=== PATIENT | female | born 1950 | race Caucasian/White ===

== ENCOUNTER → 2018-08-07 12:17 | Outpatient (CLI) | payer MEDICARE, OTHER, SELFPAY ==
--- NOTE | 2018-08-07 | DI.MG.S_ITS ---
BILATERAL DIGITAL SCREENING MAMMOGRAM 3D/2D WITH CAD: 08/07/2018 CLINICAL: Routine screening. Family history of breast cancer. Comparison is made to exams dated: 04/14/2017 mammogram, 03/31/2016 mammogram, 03/30/2015 mammogram, 02/27/2013 mammogram, 03/21/2014 mammogram, and 02/13/2012 mammogram - [facility]. The tissue of both breasts is extremely dense, which lowers the sensitivity of mammography. Current study was also evaluated with a Computer Aided Detection (CAD) system. There is an oval equal density focal asymmetry with an indistinct margin in the right breast at 6 o'clock posterior depth. No other significant masses, calcifications, or other findings are seen in either breast. IMPRESSION: INCOMPLETE: NEEDS ADDITIONAL IMAGING EVALUATION The oval equal density focal asymmetry in the right breast is indeterminate. Additional views with possible ultrasound are recommended. This exam was interpreted at Station ID: [id number]. NOTE: For mammograms, a report in lay terms will be sent to the patient. Approximately 15% of breast malignancies will not be visualized mammographically. In the management of a palpable breast mass, a negative mammogram must not discourage biopsy of a clinically suspicious lesion. Electronically Signed By: Guzman Perales M.D. ecl/:08/07/2018 17:29:36 letter sent: Additional Imaging Needed ACR BI-RADS Category 0: Incomplete 3340F
== END ==
PROVIDERS: PCP Family Medicine; Visit Provider Family Medicine
DX: Z12.31 Encounter for screening mammogram for malignant neoplasm of breast (principal); Z80.3 Family history of malignant neoplasm of breast
CPT/HCPCS: 77063; 77067

== ENCOUNTER → 2018-08-14 12:17 | Outpatient (CLI) | payer MEDICARE, OTHER, SELFPAY ==
--- NOTE | 2018-08-14 | DI.US.S_ITS ---
LIMITED ULTRASOUND OF RIGHT BREAST: 08/14/2018 CLINICAL: Patient returns today to evaluate abnormalities in the right breast. Comparison is made to exams dated: 08/14/2018 mammogram, 08/07/2018 mammogram, 04/14/2017 mammogram, 03/31/2016 mammogram, 03/30/2015 mammogram, and 03/21/2014 mammogram - [facility]. Real-time and Doppler ultrasound of the right breast 12-3 o'clock and 6-7 o'clock regions were performed. Naik scale images of the real-time examination were reviewed. There is a 1.3 x 0.7 x 1.3 cm oval circumscribed hypoechoic cyst with posterior acoustic enhancement and no vascularity on Doppler ultrasound in the right breast at 7:00 position 3 cm from the nipple. Low level internal echoes along the anterior aspect of this cyst likely represent reverberation artifact, less likely proteinaceous debris. This correlates with the asymmetry seen on comparison mammography. There is a 0.5 x 0.3 x 0.6 cm oval indistinct hypoechoic probable complicated cyst in the right breast at 1:30 position 2 cm from the nipple which demonstrates mild posterior acoustic enhancement, internal echogenic foci/debris, and no vascularity on Doppler imaging. This may correlate with the asymmetry seen on comparison mammography. Targeted ultrasound of the right axilla demonstrates no right axillary lymphadenopathy. IMPRESSION: PROBABLY BENIGN 1. 0.6 cm probable complicated cyst in the right breast at 1:30 position 2 cm from the nipple, which may correlate with the asymmetry seen on comparison mammography. A followup diagnostic mammogram and targeted ultrasound in 6 months is recommended to demonstrate stability. The patient is advised to monitor her breasts and to return sooner for re-evaluation should she feel anything grow or change. 2. 1.3 cm benign cyst in the right breast at 7:00 position 3 cm from the nipple. This correlates with the asymmetry seen on comparison mammography. 3. No right axillary lymphadenopathy. This exam was interpreted at Station ID: [id number]. Electronically Signed By: Guzman Perales M.D. ecl/:08/15/2018 06:58:52 letter sent: Followup Recommended Ultrasound BI-RADS: 3 Probably benign
--- NOTE | 2018-08-14 | DI.MG.S_ITS ---
UNILATERAL RIGHT DIGITAL DIAGNOSTIC MAMMOGRAM 3D/2D WITH ADDITIONAL VIEWS: 08/14/2018 CLINICAL: Additional evaluation requested from prior study. Comparison is made to exams dated: 08/07/2018 mammogram, 04/14/2017 mammogram, and 03/31/2016 mammogram - [facility]. The tissue of right breast is extremely dense, which lowers the sensitivity of mammography. Previously identified oval equal density focal asymmetry with an indistinct margin in the right breast near 6 o'clock posterior depth on comparison screening mammograms persists with additional views. There is also an irregular equal density asymmetry in the upper inner right breast at middle to posterior depth. IMPRESSION: INCOMPLETE: NEEDS ADDITIONAL IMAGING EVALUATION Previously identified oval equal density focal asymmetry with an indistinct margin in the right breast near 6 o'clock posterior depth on comparison screening mammograms persists with additional views. There is also an irregular equal density asymmetry in the upper inner right breast at middle to posterior depth. A targeted ultrasound is recommended for further evaluation, and will be performed immediately following this exam. This exam was interpreted at Station ID: [id number]. NOTE: For mammograms, a report in lay terms will be sent to the patient. Approximately 15% of breast malignancies will not be visualized mammographically. In the management of a palpable breast mass, a negative mammogram must not discourage biopsy of a clinically suspicious lesion. Electronically Signed By: Guzman Perales M.D. ecl/:08/15/2018 06:52:25 ACR BI-RADS Category 0: Incomplete 3340F
== END ==
PROVIDERS: PCP Family Medicine; Visit Provider Family Medicine
DX: R92.8 Other abnormal and inconclusive findings on diagnostic imaging of breast (principal); D24.1 Benign neoplasm of right breast
CPT/HCPCS: 76642; 77065; G0279

== ENCOUNTER → 2019-02-12 11:24 | Outpatient (CLI) | payer MEDICARE, OTHER, SELFPAY ==
--- NOTE | 2019-02-12 | DI.MRI.S_ITS ---
PROCEDURE: MR SHOULDER RT WO CON INDICATIONS: Pain in right shoulder TECHNIQUE: Noncontrast oblique coronal T2 fast spin echo with fat saturation, oblique sagittal T1 spin echo and T2 fast spin echo with fat saturation, axial T1 spin echo and T2 fast spin echo with fat saturation through the shoulder. COMPARISON: None. FINDINGS: Image quality: Excellent. Rotator cuff: There is full-thickness rupture of distal supraspinatus at its insertion the humeral head with 1.5 cm medial retraction of torn tendon fibers to the level of acromion. Tendinosis and moderate grade articular surface partial thickness tear involving distal infraspinatus is seen. Distal subscapularis tendinosis is noted. Sagittal images demonstrate no significant rotator muscle atrophy. Bones and bursae: There is marrow edema involving anterior and lateral portion of humeral head extending to greater tuberosity with ill-defined internal linear hypointense signal suggestive of areas of subcortical fracture or bony contusion. No displaced fracture is seen. Mild acromioclavicular joint and glenohumeral joint osteoarthritis is seen. There is moderate amount of joint effusion and subacromial subdeltoid bursal fluid. No gross intra-articular loose body. Capsule and soft tissues: In the absence of intra-articular contrast, there is suggestion of superior anterior labral tear at the 12 to 2:00 position. The glenohumeral ligaments appear intact. Tendinosis involving proximal intra-articular portion of long head of biceps tendon is seen. The rotator interval appears normal, without fibrosis. The coracohumeral ligament is normal in thickness. IMPRESSION: 1. Full-thickness rupture involving distal supraspinatus at its insertion the humeral head with 1.5 cm medial retraction of torn tendon fibers to the level of acromion. Tendinosis and moderate grade articular surface partial thickness tear involving distal infraspinatus. Distal subscapularis tendinosis. 2. Suggestion of nondisplaced fracture/subcondylar fracture involving greater tuberosity of humeral head and anterior aspect of humeral head adjacent to glenohumeral joint. No displaced fracture is seen. No dislocation. Moderate amount of joint effusion and subacromial subdeltoid bursal fluid. 3. Suggestion of superior anterior labral tear at 12 to 2:00 position. 4. Tendinosis involving proximal intra-articular portion of long head biceps tendon. Dictated by: Fortunato Lim M.D. on 02/12/2019 at 17:02 Approved by: Fortunato Lim M.D. on 02/12/2019 at 17:17
== END ==
PROVIDERS: PCP Family Medicine; Visit Provider Orthopaedic Surgery
DX: M25.511 Pain in right shoulder (principal); M75.121 Complete rotator cuff tear or rupture of right shoulder, not specified as traumatic; M19.011 Primary osteoarthritis, right shoulder; M25.411 Effusion, right shoulder
CPT/HCPCS: 73221

== ENCOUNTER → 2019-02-26 11:28 | Outpatient (CLI) | payer MEDICARE, OTHER, SELFPAY ==
--- NOTE | 2019-02-26 | DI.MRI.S_ITS ---
PROCEDURE: MR HEAD/BRAIN WO/W CON INDICATIONS: Benign neoplasm of cerebral meninges TECHNIQUE: Noncontrast axial T1 spin echo, axial T2 fast spin echo, sagittal and axial FLAIR, coronal T2 fast spin echo, axial gradient echo, axial diffusion and ADC through the brain. After the administration of contrast, axial and coronal T1 spin echo with fat saturation through the brain. COMPARISON: None. FINDINGS: Image quality: Excellent. CSF spaces: Basal cisterns are patent. No extra-axial fluid collections. Ventricles are normal in size and shape. Brain: There is an extra-axial mass seen along the superior aspect of the right frontal lobe, which demonstrates relatively low signal on T2-weighted imaging. This measures 2.5 by 1.7 cm in greatest axial dimension, with a craniocaudal extent of 1.7 cm. On postcontrast imaging, there is relatively prominent enhancement seen throughout this lesion, yet with mild sparing seen centrally. Hemorrhage is present centrally, as manifested by susceptibility artifact. No additional masses or abnormal enhancement can be seen. No midline shift. No intracranial bleeds. There is cerebral volume loss for age. There is periventricular white matter chronic small vessel ischemic change. The brainstem appears normal. Diffusion-weighted images demonstrate no acute ischemic insults. No chronic ischemic insults. Normal intravascular flow voids are present. Skull and face: Calvarial marrow is normal in signal. Orbits appear normal. Sinuses: Mucous retention cyst can be seen within the maxillary sinuses, left more prominent than right. Mild mucosal thickening is seen within the ethmoid air cells. No abnormal fluid is seen within the mastoid air cells. IMPRESSION: There is a 2.5 cm extra-axial mass seen superficial to the right frontal lobe, which represents a meningioma until proven otherwise in a female patient of this age. (No prior studies are available for comparison at the time of this dictation. If prior studies are presented for correlation, comparison will be made and an addendum issued to this report.) Dictated by: Sacha Parisi M.D. on 02/26/2019 at 12:10 Approved by: Sacha Parisi M.D. on 02/26/2019 at 12:15
== END ==
PROVIDERS: PCP Family Medicine; Visit Provider Family Medicine
DX: D32.0 Benign neoplasm of cerebral meninges (principal)
CPT/HCPCS: 70553

== ENCOUNTER → 2019-04-05 12:28 | Outpatient (CLI) | payer MEDICARE, OTHER, SELFPAY ==
--- NOTE | 2019-04-05 | DI.MG.S_ITS ---
UNILATERAL RIGHT DIGITAL DIAGNOSTIC MAMMOGRAM 3D/2D SHORT-TERM FOLLOW-UP: 04/05/2019 CLINICAL: Patient returns for a 6 month follow up of the right breast. Comparison is made to exams dated: 08/14/2018 mammogram, 08/07/2018 mammogram, 04/14/2017 mammogram, and 08/14/2018 [facility]. The tissue of right breast is extremely dense, which lowers the sensitivity of mammography. Previously identified oval equal density focal asymmetry with an indistinct margin in the right breast near 6 o'clock posterior depth on comparison screening mammograms of 08/07/18 and diagnostic mammograms of 08/14/18 remains stable. The previously identified irregular equal density asymmetry in the upper inner right breast at middle to posterior depth seen on diagnostic mammograms of 08/14/18 also remains stable. IMPRESSION: INCOMPLETE: NEEDS ADDITIONAL IMAGING EVALUATION Previously identified oval equal density focal asymmetry with an indistinct margin in the right breast near 6 o'clock posterior depth on comparison screening mammograms of 08/07/18 and diagnostic mammograms of 08/14/18 remains stable. The previously identified irregular equal density asymmetry in the upper inner right breast at middle to posterior depth seen on diagnostic mammograms of 08/14/18 also remains stable. A targeted ultrasound is recommended for further evaluation. This exam was interpreted at Station ID: [id number]. NOTE: For mammograms, a report in lay terms will be sent to the patient. Approximately 15% of breast malignancies will not be visualized mammographically. In the management of a palpable breast mass, a negative mammogram must not discourage biopsy of a clinically suspicious lesion. Electronically Signed By: Guzman Perales M.D. ecl/:04/05/2019 13:21:07 ACR BI-RADS Category 0: Incomplete 3340F
--- NOTE | 2019-04-05 | DI.US.S_ITS ---
LIMITED ULTRASOUND OF RIGHT BREAST: 04/05/2019 CLINICAL: 6 month follow-up of cysts. Comparison is made to exams dated: 04/05/2019 mammogram, 08/14/2018 ultrasound, 08/14/2018 mammogram, and 08/07/2018 mammogram - [facility]. Color flow ultrasound of the right breast 1-2 o'clock and 6-7 o'clock regions was performed. Naik scale images of the real-time examination were reviewed. There is a 0.6 x 0.6 x 0.5 cm oval circumscribed hypoechoic cyst with posterior acoustic enhancement and no vascularity on Doppler ultrasound in the right breast at 7:00 position 3 cm from the nipple. Low level internal echoes consistent with proteinaceous debris are identified. This appears to correlate with the asymmetry seen on comparison mammography. No other masses or abnormalities are identified in this area of concern. This likely represents interval evolution/decrease in size of the previously identified 1.3 x 0.7 x 1.3 cm probable cyst identified on comparison ultrasound of 08/14/18. There is a 0.6 x 0.6 x 0.4 cm oval indistinct hypoechoic probable complicated cyst in the right breast at 1:30 position 2 cm from the nipple which demonstrates mild posterior acoustic enhancement, internal echogenic foci/debris, and no vascularity on Doppler imaging. This may correlate with the asymmetry seen on comparison mammography. This finding previously measured 0.5 x 0.3 x 0.6 cm on comparison ultrasound of 08/14/18. IMPRESSION: PROBABLY BENIGN 1. Stable 0.6 cm probable complicated cyst in the right breast at 1:30 position 2 cm from the nipple. A followup diagnostic mammogram and targeted ultrasound in 6 months is recommended to demonstrate stability. Patient will be due for bilateral mammography at that time. The patient is advised to monitor her breasts and to return sooner for re-evaluation should she feel anything grow or change. 2. 0.6 cm probable complicated cyst in the right breast at 7:00 position 3 cm from the nipple, which likely represents an interval decrease in size and an interval increase in proteinaceous debris of the previously identified 1.3 cm cyst seen on comparison ultrasound of 08/14/18. A followup diagnostic mammogram and targeted ultrasound in 6 months is recommended to demonstrate stability. Patient will be due for bilateral mammography at that time. The patient is advised to monitor her breasts and to return sooner for re-evaluation should she feel anything grow or change. This exam was interpreted at Station ID: [id number]. Electronically Signed By: Guzman Perales M.D. ecl/:04/05/2019 14:00:07 letter sent: Followup Recommended Ultrasound BI-RADS: 3 Probably benign
== END ==
PROVIDERS: PCP Family Medicine; Visit Provider Family Medicine
DX: R92.8 Other abnormal and inconclusive findings on diagnostic imaging of breast (principal); N64.89 Other specified disorders of breast
CPT/HCPCS: 76642; 77065; G0279

== ENCOUNTER → 2019-10-01 12:58 | Outpatient (CLI) | payer MEDICARE, OTHER, SELFPAY ==
--- NOTE | 2019-10-01 | DI.MG.S_ITS ---
BILATERAL DIGITAL DIAGNOSTIC MAMMOGRAM 3D/2D SHORT-TERM FOLLOW-UP: 10/01/2019 CLINICAL: Patient returns for 6 month follow up of right breast, due for bilateral exam. Comparison is made to exams dated: 04/05/2019 mammogram, 08/14/2018 mammogram, 08/07/2018 mammogram, and 04/05/2019 [facility]. The tissue of both breasts is extremely dense, which lowers the sensitivity of mammography. There is possible architectural distortion in the right breast middle depth superior region seen on the mediolateral oblique view only. Finding is seen only on tomography and persists with spot compression. This is more prominent, but may have been present previously. The focal asymmetry in the right breast at 6 o'clock posterior depth, and the previously described irregular asymmetry in the upper inner breast are no longer convincingly identified. No other significant masses, calcifications, or other findings are seen in either breast. IMPRESSION: INCOMPLETE: NEEDS ADDITIONAL IMAGING EVALUATION The architectural distortion in the right breast middle depth superior region seen on the mediolateral oblique view only is indeterminate. An ultrasound is recommended. Follow up ultrasound for the two [id number] asymmetries described previously is also recommended. This was performed immediately following this exam. This exam was interpreted at Station ID: [id number]. NOTE: For mammograms, a report in lay terms will be sent to the patient. Approximately 15% of breast malignancies will not be visualized mammographically. In the management of a palpable breast mass, a negative mammogram must not discourage biopsy of a clinically suspicious lesion. Electronically Signed By: Angeline de jesus/:10/01/2019 15:51:00 ACR BI-RADS Category 0: Incomplete 3340F
--- NOTE | 2019-10-01 | DI.US.S_ITS ---
LIMITED ULTRASOUND OF RIGHT BREAST: 10/01/2019 CLINICAL: 6 month follow-up of cysts. Comparison is made to exams dated: 10/01/2019 mammogram, 04/05/2019 ultrasound, 04/05/2019 mammogram, 08/14/2018 ultrasound, 08/14/2018 mammogram, and 08/07/2018 mammogram - [facility]. Color flow and real-time ultrasound of the right breast 1-2 o'clock, 6-8 o'clock, and retroareolar regions were performed. Naik scale images of the real-time examination were reviewed. There is a 0.8 cm x 0.5 cm x 0.5 cm irregular cyst in the right breast at 2 o'clock middle depth 2 cm from the nipple. This abnormality is slightly increased in size by 2 mm in one direction. Color flow imaging demonstrates that there is no vascularity present. There also is a 0.4 cm x 0.4 cm x 0.3 cm irregular cyst in the right breast at 7 o'clock anterior depth 3 cm from the nipple. This abnormality is decreased in size and complexity. Color flow imaging demonstrates that there is no vascularity present. IMPRESSION: PROBABLY BENIGN The 0.8 cm irregular cyst in the right breast at 2 o'clock middle depth is probably benign. The 0.4 cm irregular cyst in the right breast at 7 o'clock anterior depth is consistent with a resolving complicated cyst and is benign. There is no abnormality seen in the right breast to correspond with the possible architectural distortion in the posterior depth central to the nipple. A follow-up right mammogram and an ultrasound in 6 months is recommended to demonstrate stability. Findings and recommendations were conveyed to the patient at time of exam. This exam was interpreted at Station ID: [id number]. Electronically Signed By: Angelien de jesus/:10/01/2019 15:59:23 letter sent: Followup Recommended Ultrasound BI-RADS: 3 Probably benign
== END ==
PROVIDERS: PCP Family Medicine; Referring Provider Family Medicine; Visit Provider Family Medicine
DX: R92.8 Other abnormal and inconclusive findings on diagnostic imaging of breast (principal); N60.01 Solitary cyst of right breast
CPT/HCPCS: 76642; 77066; G0279

== ENCOUNTER → 2020-03-04 09:27 | Outpatient (CLI) | payer MEDICARE, OTHER, SELFPAY ==
--- NOTE | 2020-03-04 | DI.MRI.S_ITS ---
PROCEDURE: MR HEAD/BRAIN WO/W CON INDICATIONS: Benign neoplasm of cerebral meninges TECHNIQUE: Noncontrast axial T1 spin echo, axial T2 fast spin echo, sagittal and axial FLAIR, coronal T2 fast spin echo, axial gradient echo, axial diffusion and ADC through the brain. After the administration of contrast, axial and coronal T1 spin echo with fat saturation through the brain. COMPARISON: None. FINDINGS: Image quality: Diagnostic, with note made of motion artifact. CSF spaces: Basal cisterns are patent. No extra-axial fluid collections. Ventricles are normal in size and shape. Brain: There is again seen an enhancing extra-axial mass superior to the right frontal lobe that measures 2.7 x 1.8 x 2 cm. There is a broad attachment to the dura. On precontrast imaging, this lesion is relatively hypointense. No additional masses or areas of abnormal enhancement can be seen. No midline shift. There is cerebral volume loss for age. There is periventricular white matter chronic small vessel ischemic change. The brainstem appears normal. Diffusion-weighted images demonstrate no acute ischemic insults. No chronic ischemic insults. Normal intravascular flow voids are present. Skull and face: Calvarial marrow is normal in signal. Orbits appear normal. Sinuses: Small mucous retention cysts can be seen within the maxillary sinuses. Sinuses and mastoids otherwise appear clear. IMPRESSION: Relatively stable extra-axial mass superior to the right frontal lobe, which is consistent with a stable meningioma. Dictated by: Sacha Parisi M.D. on 03/04/2020 at 9:24 Approved by: Sacha Parisi M.D. on 03/04/2020 at 9:28
== END ==
PROVIDERS: PCP Family Medicine; Referring Provider Family Medicine; Visit Provider Family Medicine
DX: D32.0 Benign neoplasm of cerebral meninges (principal)
CPT/HCPCS: 70553

== ENCOUNTER → 2020-05-29 08:33 | Outpatient (CLI) | payer MEDICARE, OTHER, SELFPAY ==
[2020-05-29] MEDS: COVID-19 VACC #1, MRNA(MOD) 100 MCG/0.5 ML VIAL IM (08:41)
== END ==
PROVIDERS: PCP Family Medicine; Visit Provider Internal Medicine
DX: Z23 Encounter for immunization (principal)
CPT/HCPCS: 0011A; 91301

== ENCOUNTER → 2020-06-26 08:25 | Outpatient (CLI) | payer MEDICARE, OTHER, SELFPAY ==
[2020-06-26] MEDS: COVID-19 VACC #2, MRNA(MOD) 100 MCG/0.5 ML VIAL IM (08:31)
== END ==
PROVIDERS: PCP Family Medicine; Visit Provider Internal Medicine
DX: Z23 Encounter for immunization (principal)
CPT/HCPCS: 0012A; 91301

== ENCOUNTER → 2020-08-11 13:11 | Outpatient (CLI) | payer MEDICARE, OTHER, SELFPAY ==
--- NOTE | 2020-08-11 | DI.MG.S_ITS ---
BILATERAL DIGITAL DIAGNOSTIC MAMMOGRAM 3D/2D SHORT-TERM FOLLOW-UP: 08/11/2020 CLINICAL: Short term follow up of the right breast, due for bilateral imaging. Comparison is made to exams dated: 10/01/2019 mammogram, 04/05/2019 mammogram, 08/14/2018 mammogram, 08/07/2018 mammogram, and 10/01/2019 [facility]. The tissue of both breasts is extremely dense, which lowers the sensitivity of mammography. There is a subtle architectural distortion in the right breast middle depth superior region seen on the mediolateral oblique view only. Finding is seen only on tomography. This is not significantly changed and was not seen on the prior ultrasound. This finding is subtle, but may be seen on prior exams dating back to at least 08/07/2018, and is therefore considered benign. Prior asymmetry is no longer seen in the right breast in the superior medial quadrant. The focal asymmetry in the right breast at 6 o'clock posterior depth is no longer seen. No other significant masses, calcifications, or other findings are seen in either breast. IMPRESSION: INCOMPLETE: NEEDS ADDITIONAL IMAGING EVALUATION The stable architectural distortion in the right breast is benign. Follow up ultrasound is recommended for the two asymmetries described previously that are no longer seen mammographically. Targeted ultrasound will be performed immediately following this exam. This exam was interpreted at Station ID: [id number]. NOTE: For mammograms, a report in lay terms will be sent to the patient. Approximately 15% of breast malignancies will not be visualized mammographically. In the management of a palpable breast mass, a negative mammogram must not discourage biopsy of a clinically suspicious lesion. Electronically Signed By: Trevor Shields M.D. ar/:08/11/2020 14:21:38 ACR BI-RADS Category 0: Incomplete 3340F
--- NOTE | 2020-08-11 | DI.US.S_ITS ---
LIMITED ULTRASOUND OF RIGHT BREAST: 08/11/2020 CLINICAL: 6 month follow-up of cysts. Comparison is made to exams dated: 08/11/2020 mammogram, 10/01/2019 ultrasound, 10/01/2019 mammogram, 04/05/2019 ultrasound, 04/05/2019 mammogram, and 08/14/2018 [facility]. Color flow ultrasound of the right breast was performed. Naik scale images of the real-time examination were reviewed. There is a benign 0.5 cm x 0.5 cm x 0.4 cm irregular cyst in the right breast at 2 o'clock middle depth 2 cm from the nipple. This abnormality is decreased in size. Color flow imaging demonstrates that there is no vascularity present. This cyst has not significantly changed dating back to the exam from 08/14/2018, and is therefore considered benign. There also is a benign 0.5 cm x 0.6 cm x 0.4 cm oval cyst in the right breast at 7 o'clock anterior depth 3 cm from the nipple. This oval cyst is anechoic. This abnormality is decreased in size. Color flow imaging demonstrates that there is no vascularity present. IMPRESSION: BENIGN There is no sonographic evidence of malignancy. The 0.5 cm x 0.5 cm x 0.4 cm irregular cyst in the right breast at 2 o'clock middle depth is benign. The 0.5 cm x 0.6 cm x 0.4 cm oval cyst in the right breast at 7 o'clock anterior depth is consistent with a simple cyst and is benign. A 1 year screening mammogram is recommended. This exam was interpreted at Station ID: [id number]. Electronically Signed By: Trevor new/tabitha:08/11/2020 14:27:01 letter sent: Normal Exam Ultrasound BI-RADS: 2 Benign
== END ==
PROVIDERS: PCP Family Medicine; Referring Provider Family Medicine; Visit Provider Family Medicine
DX: R92.8 Other abnormal and inconclusive findings on diagnostic imaging of breast (principal); N60.01 Solitary cyst of right breast
CPT/HCPCS: 76642; 77066; G0279

== ENCOUNTER → 2021-01-27 11:28 | Outpatient (CLI) | payer MEDICARE, OTHER, SELFPAY ==
--- NOTE | 2021-01-27 | DI.RAD.S_ITS ---
PROCEDURE: XR HIP W PEL IF DONE RT 2V INDICATIONS: rigth hip pain TECHNIQUE: AP pelvis with lateral view(s) of the right hip(s). COMPARISON: None. FINDINGS: Bones: No fractures or dislocations. Pelvic ring appears intact. No suspicious bony lesions. There is severe narrowing of the right hip joint with near bone on bone contact, subchondral sclerosis and cystic change. Periarticular osteophyte formation is present. Degenerative disc and facet disease involves the inferior lumbar spine. Soft tissues: The visualized bowel gas pattern is normal. No suspicious soft tissue calcifications. IMPRESSION: Severe asymmetric right hip joint degeneration. Dictated by: [facility] Interpreted: Geneva Calvo MD on 01/27/2021 at 11:50 Transcribed by: OSCAR on 01/27/2021 at 11:50 Approved by: Geneva Calvo M.D. on 01/27/2021 at 13:09
== END ==
PROVIDERS: PCP Family Medicine; Referring Provider Family Medicine; Visit Provider Family Medicine
DX: M25.551 Pain in right hip (principal); M16.11 Unilateral primary osteoarthritis, right hip
CPT/HCPCS: 73502

== ENCOUNTER → 2021-08-23 10:26 | Outpatient (CLI) | payer MEDICARE, OTHER, SELFPAY ==
--- NOTE | 2021-08-23 10:29 | DI.MG.S_ITS ---
BILATERAL DIGITAL SCREENING MAMMOGRAM 3D/2D WITH CAD: 08/23/2021 CLINICAL: Routine screening. Comparison is made to exams dated: 08/11/2020 ultrasound, 08/11/2020 mammogram, 10/01/2019 mammogram, 04/05/2019 mammogram, and 08/07/2018 mammogram - [facility]. The tissue of both breasts is extremely dense, which lowers the sensitivity of mammography. Current study was also evaluated with a Computer Aided Detection (CAD) system. There is a possible new 0.7 cm oval equal density asymmetry in the left breast anterior depth central to the nipple seen on the craniocaudal view only. No other significant masses, calcifications, or other findings are seen in either breast. IMPRESSION: INCOMPLETE: NEEDS ADDITIONAL IMAGING EVALUATION The possible new 0.7 cm oval equal density asymmetry in the left breast resembles a cyst or a lymph node and is indeterminate. Additional views with possible ultrasound are recommended. This exam was interpreted at Station ID: [id number]. NOTE: For mammograms, a report in lay terms will be sent to the patient. Approximately 15% of breast malignancies will not be visualized mammographically. In the management of a palpable breast mass, a negative mammogram must not discourage biopsy of a clinically suspicious lesion. Electronically Signed By: Carlos Enrique kyle/tabitha:08/23/2021 12:01:47 letter sent: Additional Imaging Needed ACR BI-RADS Category 0: Incomplete [id number]
== END ==
PROVIDERS: PCP Family Medicine; Referring Provider Family Medicine; Visit Provider Family Medicine
DX: Z12.31 Encounter for screening mammogram for malignant neoplasm of breast (principal)
CPT/HCPCS: 77063; 77067

== ENCOUNTER → 2021-10-08 09:06 | Outpatient (CLI) | payer MEDICARE, OTHER, SELFPAY ==
--- NOTE | 2021-10-08 | DI.MG.S_ITS ---
UNILATERAL LEFT DIGITAL DIAGNOSTIC MAMMOGRAM 3D/2D WITH ADDITIONAL VIEWS: 10/08/2021 CLINICAL: Patient returns today to evaluate an asymmetry in the left breast. Comparison is made to exams dated: 08/23/2021 mammogram, 08/11/2020 mammogram, and 10/01/2019 mammogram - [facility]. The tissue of left breast is extremely dense, which lowers the sensitivity of mammography. There is a possible 0.7 cm oval equal density asymmetry in the left breast anterior depth medial region seen on the craniocaudal view only. This is less prominent. No other significant masses or calcifications are seen in the breast. IMPRESSION: INCOMPLETE: NEEDS ADDITIONAL IMAGING EVALUATION The possible 0.7 cm oval equal density asymmetry in the left breast is indeterminate. A diagnostic ultrasound is recommended and will be performed now. This exam was interpreted at Station ID: [id number]. NOTE: For mammograms, a report in lay terms will be sent to the patient. Approximately 15% of breast malignancies will not be visualized mammographically. In the management of a palpable breast mass, a negative mammogram must not discourage biopsy of a clinically suspicious lesion. Electronically Signed By: Margarito Wallace M.D. jr/:10/08/2021 10:34:38 ACR BI-RADS Category 0: Incomplete [id number]
--- NOTE | 2021-10-08 | DI.US.S_ITS ---
ULTRASOUND OF LEFT BREAST: 10/08/2021 CLINICAL: Patient returns today to evaluate a focal asymmetry in the left breast. Comparison is made to exams dated: 10/08/2021 mammogram, 08/23/2021 mammogram, 08/11/2020 mammogram, and 10/01/2019 mammogram - [facility]. Color flow and real-time ultrasound of the left breast were performed. Naik scale images of the real-time examination were reviewed. No abnormality seen sonographically in the left breast. IMPRESSION: PROBABLY BENIGN Asymmetry in the left breast mostly dissipated with spot compression and has no sonographic correlate. This is likely fibroglandular tissue or perhaps a lymph node. A follow-up mammogram in 6 months is recommended to demonstrate stability. This exam was interpreted at Station ID: [id number]. Electronically Signed By: Margarito Wallace M.D. jr/:10/08/2021 10:36:32 letter sent: Followup Recommended Ultrasound BI-RADS: 3 Probably benign
== END ==
PROVIDERS: PCP Family Medicine; Referring Provider Family Medicine; Visit Provider Family Medicine
DX: R92.8 Other abnormal and inconclusive findings on diagnostic imaging of breast (principal); N64.89 Other specified disorders of breast
CPT/HCPCS: 76642; 77065; G0279

== ENCOUNTER → 2022-04-13 10:30 | Outpatient (CLI) | payer MEDICARE, OTHER, SELFPAY ==
--- NOTE | 2022-04-13 | DI.MRI.S_ITS ---
PROCEDURE: MR HEAD/BRAIN WO CON INDICATIONS: Benign neoplasm of cerebral meninges TECHNIQUE: Non-contrast axial T1 spin echo, axial T2 fast spin echo, sagittal and axial FLAIR, coronal T2 fast spin echo, axial gradient echo, axial diffusion and ADC through the brain. COMPARISON: Merged With [facility], MR, MR HEAD/BRAIN WO/W CON, 03/04/2020, 9:44. FINDINGS: Image quality: Excellent. CSF spaces: Ventricles appear symmetric in size and shape. Basal cisterns are patent. No extra-axial fluid collections. Brain: No intracranial bleeds . As before, there is an extra-axial dural-based low T2 intensity signal focus overlying the left anterosuperior frontal lobe, measuring roughly 20 mm craniocaudal by 18 mm transverse by 27 mm anteroposterior. There is cerebral volume loss for age. There are periventricular and deep white matter chronic small vessel ischemic changes. Brainstem appears normal. Diffusion-weighted images show no acute ischemic insults. No chronic ischemic insults. Normal intravascular flow voids are present. Skull and face: Calvarial bone marrow is normal in signal. Orbits are normal. Sinuses: Mild mucosal thickening within the bilateral ethmoid air cells. Left maxillary sinus retention cyst. Smaller right maxillary sinus retention cyst. Sinuses and mastoids are otherwise clear. IMPRESSION: 1. No significant change in right frontal meningioma. 2. Volume loss and small vessel ischemic disease. 3. No acute process. No recent infarct. Dictated by: Jimenez Steele M.D. on 04/13/2022 at 10:10 Transcribed by: ELLIE on 04/13/2022 at 10:12 Approved by: Jimenez Steele M.D. on 04/13/2022 at 15:55
== END ==
PROVIDERS: PCP Family Medicine; Referring Provider Family Medicine; Visit Provider Family Medicine
DX: D32.0 Benign neoplasm of cerebral meninges (principal)
CPT/HCPCS: 70551

== ENCOUNTER → 2022-05-17 13:18 | Outpatient (CLI) | payer MEDICARE, OTHER, SELFPAY ==
--- NOTE | 2022-05-17 | DI.MG.S_ITS ---
UNILATERAL LEFT DIGITAL DIAGNOSTIC MAMMOGRAM 3D/2D SHORT-TERM FOLLOW-UP: 05/17/2022 CLINICAL: Short term follow up for the left breast. Comparison is made to exams dated: 10/08/2021 mammogram, 08/23/2021 mammogram, and 08/11/2020 mammogram - [facility]. The left breast is extremely dense, which lowers the sensitivity of mammography (category d />75% glandular tissue). The previously described possible 0.7 cm oval equal density asymmetry in the left breast anterior depth central to the nipple seen on the craniocaudal view only is again not definitively seen in additional views. This is less prominent and was not seen on the prior ultrasound. No other significant masses or calcifications are seen in the breast. IMPRESSION: PROBABLY BENIGN The possible 0.7 cm oval equal density asymmetry in the left breast is likely fibroglandular tissue and is probably benign. A follow-up bilateral mammogram with possible left ultrasound in 6 months is recommended to demonstrate stability. Findings and recommendations were conveyed to the patient during today's evaluation. Based on the Tyrer Cuzick model (a risk assessment model) the patient's lifetime risk is 14.3% and her 10 year risk is 11.9%. According to the ACR, ACS, and NCCN guidelines, an annual breast MRI exam along with mammogram is recommended if the patient's lifetime risk is 20% or greater. This exam was interpreted at Station ID: [id number]. NOTE: For mammograms, a report in lay terms will be sent to the patient. Approximately 15% of breast malignancies will not be visualized mammographically. In the management of a palpable breast mass, a negative mammogram must not discourage biopsy of a clinically suspicious lesion. Electronically Signed By: Carlos Enrique Clinton M.D. aty/:05/17/2022 14:07:49 letter sent: Followup Recommended ACR BI-RADS Category 3: Probably benign [id number]
== END ==
PROVIDERS: PCP Family Medicine; Referring Provider Family Medicine; Visit Provider Family Medicine
DX: N64.89 Other specified disorders of breast (principal); R92.8 Other abnormal and inconclusive findings on diagnostic imaging of breast
CPT/HCPCS: 77065; G0279

== ENCOUNTER → 2022-12-07 11:51 | Outpatient (CLI) | payer MEDICARE, OTHER, SELFPAY ==
--- NOTE | 2022-12-07 | DI.MG.S_ITS ---
BILATERAL DIGITAL DIAGNOSTIC MAMMOGRAM 3D/2D: 12/07/2022 CLINICAL: Short term follow up of the left breast, due for bilateral imaging. Comparison is made to exams dated: 05/17/2022 mammogram, 10/08/2021 ultrasound, 10/08/2021 mammogram, and 08/23/2021 mammogram - [facility]. Both breasts are extremely dense, which lowers the sensitivity of mammography (category d />75% glandular tissue). Redemonstration of previously described possible 0.7 cm oval equal density asymmetry in the left breast anterior depth central to the nipple seen on the craniocaudal view only. This is not seen in additional views. This is less prominent and was not seen on the prior ultrasound. No other significant masses, calcifications, or other findings are seen in either breast. IMPRESSION: PROBABLY BENIGN The possible 0.7 cm oval equal density asymmetry in the left breast resembles fibroglandular tissue and is probably benign. A follow-up bilateral mammogram with possible left ultrasound in 12 months is recommended to document prison stability. Findings and recommendations were conveyed to the patient during today's evaluation. Based on the Tyrer Cuzick model (a risk assessment model) the patient's lifetime risk is 14.1% and her 10 year risk is 11.7%. According to the ACR, ACS, and NCCN guidelines, an annual breast MRI exam along with mammogram is recommended if the patient's lifetime risk is 20% or greater. This exam was interpreted at Station ID: [id number]. NOTE: For mammograms, a report in lay terms will be sent to the patient. Approximately 15% of breast malignancies will not be visualized mammographically. In the management of a palpable breast mass, a negative mammogram must not discourage biopsy of a clinically suspicious lesion. Electronically Signed By: Carlos Enrique Clinton M.D. aty/:12/07/2022 12:28:31 letter sent: Followup Recommended ACR BI-RADS Category 3: Probably benign [id number]
== END ==
PROVIDERS: PCP Family Medicine; Referring Provider Family Medicine; Visit Provider Family Medicine
DX: N64.89 Other specified disorders of breast (principal); R92.8 Other abnormal and inconclusive findings on diagnostic imaging of breast
CPT/HCPCS: 77066; G0279

== ENCOUNTER → 2024-02-23 09:23 | Outpatient (CLI) | payer MEDICARE, OTHER, SELFPAY ==
--- NOTE | 2024-02-23 09:25 | DI.MG.S_ITS ---
BILATERAL DIGITAL DIAGNOSTIC MAMMOGRAM 3D/2D: 02/23/2024 CLINICAL: Short term follow up of the left breast, due for bilateral imaging. Comparison is made to exams dated: 12/07/2022 mammogram, 05/17/2022 mammogram, 08/23/2021 mammogram, and 08/11/2020 mammogram - [facility]. The breasts are extremely dense, which lowers the sensitivity of mammography (category d />75% glandular tissue). There is a possible developing architectural distortion in the right breast middle depth central to the nipple seen on the mediolateral oblique view only. This is not seen in additional views. There is a stable asymmetry in the left breast anterior depth central to the nipple seen on the craniocaudal view only. This was not seen on the prior ultrasound. No other significant masses or calcifications are seen in either breast. IMPRESSION: BENIGN There is no mammographic evidence of malignancy. Left breast asymmetry demonstrates long-term stability and is benign. Right breast possible developing architectural distortion is not confirmed and is benign. A 1 year screening mammogram is recommended. Exam findings were conveyed to the patient. Based on the Tyrer Cuzick model (a risk assessment model) the patient's lifetime risk is 13.2% and her 10 year risk is 12.0%. According to the ACR, ACS, and NCCN guidelines, an annual breast MRI exam along with mammogram is recommended if the patient's lifetime risk is 20% or greater. This exam was interpreted at Station ID: [id number]. NOTE: For mammograms, a report in lay terms will be sent to the patient. Approximately 15% of breast malignancies will not be visualized mammographically. In the management of a palpable breast mass, a negative mammogram must not discourage biopsy of a clinically suspicious lesion. Electronically Signed By: Gautam Urbina M.D. [facility] [place]/:02/23/2024 09:50:46 letter sent: Normal Exam ACR BI-RADS Category 2: Benign
== END ==
PROVIDERS: PCP Family Medicine; Referring Provider Family Medicine; Visit Provider Family Medicine
DX: R92.8 Other abnormal and inconclusive findings on diagnostic imaging of breast (principal); R92.343 Mammographic extreme density, bilateral breasts; N64.89 Other specified disorders of breast
CPT/HCPCS: 77066; G0279

== ENCOUNTER → 2024-03-20 10:11 | Outpatient (CLI) | payer MEDICARE, OTHER, SELFPAY ==
--- NOTE | 2024-03-20 10:12 | DI.MRI.S_ITS ---
PROCEDURE: MR HEAD/BRAIN WO CON INDICATIONS: F/U MENINGIOMA TECHNIQUE: Non-contrast axial T1 spin echo, axial T2 fast spin echo, sagittal and axial FLAIR, coronal T2 fast spin echo, axial gradient echo, axial diffusion and ADC through the brain. COMPARISON: [facility], MR, MR HEAD/BRAIN WO/W CON, 03/04/2020, 9:44. [facility], MR, MR HEAD/BRAIN WO/W CON, 02/26/2019, 12:14. [facility], MR, MR HEAD/BRAIN WO CON, 04/13/2022, 10:36. FINDINGS: Image quality: Excellent. CSF spaces: Ventricles appear symmetric in size and shape. Basal cisterns are patent. No extra-axial fluid collections. Brain: There is again seen a T2 hypointense extra-axial mass adjacent to the left frontal lobe superiorly, as on series 8 image 22, and on series 9, image 16, measuring 27 x 17 mm in greatest axial dimension, with a craniocaudal extent of 1.9 cm. Previously, this measured 27 x 18 x 20 mm, when measured in a similar fashion. Within this lesion, there is a mild degree of restricted diffusion seen, with low signal on the ADC maps, which is reflective of the highly cellular nature of this tumor. No intracranial bleeds. There is cerebral volume loss for age. There are periventricular and deep white matter chronic small vessel ischemic changes. Brainstem appears normal. Diffusion-weighted images show no acute infarct. No chronic ischemic insults. Normal intravascular flow voids are present. Skull and face: Calvarial bone marrow is normal in signal. Orbits are normal. Note is made of bilateral lens replacements. Sinuses: Sinuses and mastoids are clear. IMPRESSION: Stable T2 hypointense extra-axial mass seen, which is attributed to a stable meningioma. Dictated by: Sacha Parisi M.D. on 03/20/2024 at 13:47 Approved by: Sacha Parisi M.D. on 03/20/2024 at 13:50
== END ==
PROVIDERS: PCP Family Medicine; Referring Provider Family Medicine; Visit Provider Family Medicine
DX: D32.9 Benign neoplasm of meninges, unspecified (principal)
CPT/HCPCS: 70551

== ENCOUNTER 2025-04-21 07:07 | Day surgery (SDC) | payer MEDICARE, OTHER, SELFPAY ==
[2025-04-16 10:07] VITALS: BMI 20.7
[2025-04-21 08:03] VITALS: BP 120/61; PULSE 61; RESP 16; TEMP 36.2; O2SAT 100
[2025-04-21] MEDS: LACTATED RINGERS 1,000 ML 42 ML IV (08:08)
--- NOTE | 2025-04-21 08:19 | PM.HP.IH.1 ---
History of Present Illness History of Present Illness Date Patient Seen: 04/21/25 Time Patient Seen: 08:19 Chief complaint: SDC Narrative: Namita is a 74-year-old woman here for colonoscopy. Her last one was about 10 years ago and was normal. No family history of colon cancer. [facility] Medical History (Updated 04/21/25 @ 08:19 by Rory England MD) Arthritis Osteoporosis BCC (basal cell carcinoma) Hx of fracture of nose Social History Smoking Status: Never smoker alcohol intake: never Meds Home Medications and Allergies Home Medications ?Medication ?Instructions ?Recorded ?Confirmed ?Type conjugated estrogens 0.625 mg ##0 05/02/11 History tablet (Premarin) sodium,potassium,mag sulfates 17.5 See Rx Instructions PO .COMPLEX 01/08/25 Rx gram-3.13 gram-1.6 gram oral soln #354 mL (Suprep Bowel Prep Kit) apple cider vinegar 300 mg tablet mg PO DAILY 04/16/25 History calcium carbonate (Oyster Shell 500 mg PO DAILY 04/16/25 History Calcium) cholecalciferol (vitamin D3) 25 75 mcg PO DAILY 04/16/25 History mcg (1,000 unit) capsule estradiol 1 mg tablet 1 mg PO DAILY 04/16/25 History magnesium 250 mg tablet 250 mg PO DAILY 04/16/25 History multivitamin (Multiple Vitamins 2 tab PO DAILY 04/16/25 History tablet) tretinoin 0.05 % topical cream 1 applic topical BEDTIME 04/16/25 History (Retin-A) Allergies Allergy/AdvReac Type Severity Reaction Status Date / Time No Known Allergies Allergy Verified 04/16/25 08:53 Exam Vital Signs (past 8 hours): - 04/21/25 08:03 Temperature 97.1 F L Pulse Rate 61 Respiratory Rate 16 Blood Pressure 120/61 Pulse Oximetry 100 Oxygen Delivery Method Room Air Oxygen Delivery Method Room Air Const General: healthy appearing Assessment & Plan Assessment and plan (1) Colon cancer screening: Status: Acute Plan Colonoscopy Time-Based Coding :: [TOTAL MINUTES] spent with patient and on the chart (including review of chart, obtaining history, exam, reviewing outside data, placing orders, documenting exam and treatment plan, and counseling patient) on [DATE]. [employer] Document charge(s): No
[2025-04-21 09:28] VITALS: BP 93/69; PULSE 61; RESP 20; TEMP 36.6; O2SAT 99
[2025-04-21 09:30] VITALS: BP 108/52; PULSE 68; RESP 20; O2SAT 100
--- NOTE | 2025-04-21 09:34 | P.OP.COLON_ITS ---
Operative Date/Time/Diagnoses Date of procedure: 04/21/25 Time of procedure: 09:34 Pre-op diagnosis: Colon cancer screening Post-op diagnosis: same Procedure & Clinicians Study performed: Colonoscopy Same procedure(s) as scheduled: Yes Surgeon: Rory England Anesthesia Type: MAC +/- Procedure Notes Procedure in detail: Surgeon: Rory England MD Anesthesia: Radha Jenkins [employer] 8 minutes Procedure: The patient was brought to the endoscopy suite, placed in left lat eral decubitus position. The patient was connected to monitoring devices. A time-out was performed. Sedation was administered. Once the patient was adequately sedated, a digital rectal exam was performed and was normal. The scope was then inserted and advanced to the cecum where the appendiceal orifice was identified and photographed. The scope was then slowly withdrawn over greater than 6 minutes. The mucosa was thoroughly inspected. No abnormalities were found. The scope was retroflexed in the rectum. The scope was straightened and removed. The patient was awakened and brought to recovery. Scope withdrawal time: 8 minutes Sedation time: 22 minutes Findings: Normal colon Estimated Blood Loss: 0 Complications: none Post-procedure Disposition: PACU
[2025-04-21 09:36] VITALS: BP 123/55; PULSE 56; RESP 22; O2SAT 97
== END 2025-04-21 10:00 | disposition home or self-care (01) ==
PROVIDERS: PCP Family Medicine; Referring Provider Surgery; Visit Provider Surgery
PROC: 0DJD8ZZ Inspection of Lower Intestinal Tract, Via Natural or Artificial Opening Endoscopic (ICD-10-PCS; CPT 45378; principal; 2025-04-21 08:45)
DX: Z12.11 Encounter for screening for malignant neoplasm of colon (principal)
CPT/HCPCS: G0121; J2704; J7120